=== PATIENT | male | born 1990 | race Caucasian/White ===

== ENCOUNTER 2020-05-11 10:29 | Emergency (ER) | payer SELFPAY ==
[~2020-05-11] VITALS: Ht 185.4 cm; Wt 80.0 kg
[2020-05-11 10:34] VITALS: TEMP 98.7
[2020-05-11] MEDS ORDERED: RISPERDAL2 MG PO (10:39)
[2020-05-11] MEDS ORDERED: COGENTIN 1MG1 MG/TAB PO (10:40)
[2020-05-11] MEDS ORDERED: HALDOL 5MG T5 MG/TAB PO (10:40)
[2020-05-11] MEDS ORDERED: TRILEPTAL 300M300 MG PO (10:42)
[2020-05-11 11:09] VITALS: BP 125/77; PULSE 95
[2020-05-11] MEDS ORDERED: FLEXERIL 1010 MG/TAB PO (11:09)
== END 2020-05-11 11:15 | disposition home or self-care (01) ==
LOC: COL.ER 10:29
DX: S46.912A Strain of unspecified muscle, fascia and tendon at shoulder and upper arm level, left arm, initial encounter (principal); F31.9 Bipolar disorder, unspecified; F17.200 Nicotine dependence, unspecified, uncomplicated; X50.0XXA Overexertion from strenuous movement or load, initial encounter; Y93.F2 Activity, caregiving, lifting; Y92.009 Unspecified place in unspecified non-institutional (private) residence as the place of occurrence of the external cause